=== PATIENT | female | born 1995 | race Hispanic/Latino ===

== ENCOUNTER 2024-02-15 17:51 | Observation (INO) | payer BC, MEDICAID ==
[~2024-02-15] VITALS: Ht 157.5 cm; Wt 88.9 kg
[2024-02-15 19:09] LABS: ADD UA MICROSCOPIC NO; APPEARANCE,URINE CLEAR (CLEAR); BILIRUBIN,URINE NEGATIVE (NEGATIVE); COLOR,URINE LIGHT-YELLOW (YELLOW); GLUCOSE, URINE (UA) NEGATIVE (NEGATIVE); KETONES,URINE NEGATIVE (NEGATIVE); LEUKOCYTE ESTERASE ,URINE NEGATIVE Leu/uL (NEGATIVE); NITRATE,URINE NEGATIVE (NEGATIVE); OCCULT BLOOD,URINE NEGATIVE (NEGATIVE); PROTEIN,URINE NEGATIVE (NEGATIVE); UROBILINOGEN,URINE 0.2 mg/dL (0.2-1.0)
== END 2024-02-15 19:35 | disposition home or self-care (01) ==
LOC: LDH 17:51
PROVIDERS: ADMIT Obstetrics & Gynecology; ATTEND Obstetrics & Gynecology
DX: O42.913 Preterm premature rupture of membranes, unspecified as to length of time between rupture and onset of labor, third trimester (principal); Z3A.32 32 weeks gestation of pregnancy
CPT/HCPCS: 76819; 81003; G0379; G0378

== ENCOUNTER 2024-03-01 17:13 | Observation (INO) | payer BC, MEDICAID ==
[~2024-03-01] VITALS: Ht 154.9 cm; Wt 85.3 kg
[2024-03-01 18:00] VITALS: BP 124/85; PULSE 72; RESP 18; O2SAT 99
[2024-03-01 20:16] LABS: APPEARANCE,URINE CLEAR (CLEAR); BILIRUBIN,URINE NEGATIVE (NEGATIVE); COLOR,URINE COLORLESS (YELLOW); GLUCOSE, URINE (UA) NEGATIVE (NEGATIVE); KETONES,URINE NEGATIVE (NEGATIVE); LEUKOCYTE ESTERASE ,URINE NEGATIVE Leu/uL (NEGATIVE); NITRATE,URINE NEGATIVE (NEGATIVE); OCCULT BLOOD,URINE NEGATIVE (NEGATIVE); PH,URINE 6.5 (5.0-8.0); PROTEIN,URINE NEGATIVE (NEGATIVE); UROBILINOGEN,URINE 0.2 mg/dL (0.2-1.0)
[2024-03-01 20:17] LABS: ADD UA MICROSCOPIC YES
[2024-03-01] MEDS: LACTATED RINGERS 1000ML 1,000 ML IV SCH (20:29)
[2024-03-01] MEDS: DEXAMETHASONE SOD PHOSPHATE 4 MG/ML 1ML VIAL IM SCH (20:30)
== END 2024-03-02 13:05 | disposition home or self-care (01) ==
LOC: EDH 17:13 → LDH 19:26
PROVIDERS: ADMIT Obstetrics & Gynecology; ATTEND Obstetrics & Gynecology
DX: O41.03X0 Oligohydramnios, third trimester, not applicable or unspecified (principal); Z3A.34 34 weeks gestation of pregnancy
CPT/HCPCS: 96361 ×4; 96372 ×2; 96360; 81001; 76819; G0378 ×18; G0379; J7120 ×3; J1100 ×4